=== PATIENT | male | born 1945 | race Caucasian/White ===

== ENCOUNTER 2024-12-26 18:25 | Emergency (ER) | payer MEDICARE, SELFPAY ==
[2024-12-26] VITALS (36 sets, daily range): BP systolic 83–135; BP diastolic 49–106; PULSE 92–109; O2SAT 90–96; BMI 40.6
--- NOTE | 2024-12-26 18:30 | XR_ITS ---
The [address] [address] Patient Name: RENATE GUILLEN MRN: [id number] date: 1945 Sex: M Assigned Patient Location: ED.MAIN Current Patient Location: ED.MAIN Accession/Order Number: [id number] Exam Date: 12/26/2024 19:54 Report Date: 12/26/2024 19:56 At the request of: DAVID GAN MD Procedure: XR chest 1V PA CHEST: CLINICAL HISTORY: unresponsive COMPARISON: None Hypoventilatory changes. Heart is grossly unremarkable size. No effusion or pneumothorax. Bibasilar atelectasis suspected. No definite confluent airspace disease or effusion. XR/XR chest 1V IMPRESSION: Hypoventilatory changes without definite airspace disease. Impression dictated by: Kenyon Rod M.D. 12/26/2024 7:56 PM Dictation Location: [place] [address] Electronically authenticated by: [id number] Y Date: 12/26/2024 19:56
--- NOTE | 2024-12-26 18:30 | ECG_ITS ---
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 Measurements Intervals [place] Rate: 53 P: 212 WV: 274 QRS: 78 QRSD: 78 T: 38 QT: 384 QTc: 368 Interpretive Statements SINUS BRADYCARDIA 1470 with occasional supraventricular premature complexes 1570 with occasional ventricular premature complexes 2231 First degree AV block 3133 Anterior myocardial infarction, probably old 8102 Low QRS voltage in chest leads 9150 abnormal ECG No previous ECG available for comparison Electronically Signed On 12-27-2024 6:55:39 EDT by ROBIN HOLBROOK M.D.
[2024-12-26] MEDS: 0.9 % SODIUM CHLORIDE 1,000 ML 1000 ML IV (18:45)
[2024-12-26] MEDS: PANTOPRAZOLE SODIUM 40 MG VIAL 80 MG IV (18:45)
--- NOTE | 2024-12-26 18:47 | ED_ITS ---
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 and his last INR checked more than a 1 month ago was normal, patient is coming to us also with lower abdominal pain associate mostly with having a bowel movement, the patient mentioned having some vomiting with blood in it before arrival to, by the time the EMS arrived the patient became unresponsive going to the EMS vehicle, it was only for few seconds and they did not do any CPR but he was sinus tachycardia when that happened and he regained consciousness by himself The patient have nausea right now and lower abdominal pain Related Data Allergies Allergy/AdvReac Type Severity Reaction Status Date / Time amoxicillin Allergy Unknown Unknown Verified 12/26/24 18:36 Iodinated Contrast Media Allergy Unknown Unknown Verified 12/26/24 18:36 Review of Systems ROS Status of ROS 10 or more systems reviewed and unremark able except as noted in history and below PFSH PFSH Social History Little interest or pleasure in doing things: not at all Feeling down, depressed, or hopeless: not at all Exam Narrative Exam Narrative: Nurses notes and vital signs reviewed and patient is not hypoxic. General: Pale and appears to be in distress Skin: Warm, dry, pale No rash. Head: Normocephalic, atraumatic. Neck: Supple, non-tender. Eye: Pupils are equal, round and EOMI. No scleral icterus. Ears, Nose, Mouth, and Throat: TM are clear, no nasal mucosal hypertrophy. Oral mucosa is moist, no posterior oropharynx erythema, uvula is mid-line Cardiovascular: Regular Rate and Rhythm without murmur, gallop or rub. Respiratory: No accessory muscle use or respiratory distress. Lungs are clear to auscultation, no wheezing, rales or rhonchi Chest Wall: no tenderness Back: No midline thoracic or lumbar vertebral tenderness. No CVA tenderness Musculoskeletal: normal ROM, no calf or popliteal tenderness, no lower extremity edema/swelling GI: Abdomen is soft, non-distended. Normal bowel sounds. Lower abdominal pain and tenderness Neurological: A&O x4. No cranial nerve dysfunction observed. No truncal ataxia. Moves all extremities. Sensation intact. Psychiatric: Cooperative and interactive. Normal mood and affect. Constitutional Vital Signs, click to edit/add: Last Vital Signs Pulse 109 H 12/26/24 18:32 Resp 26 H 12/26/24 18:32 BP 112/61 12/26/24 18:32 Pulse Ox 96 12/26/24 18:32 O2 Del Method Room Air 12/26/24 18:32 Course Vital Signs Vital signs: Vital Signs Pulse Rate 109 H 12/26/24 18:32 Respiratory Rate 26 H 12/26/24 18:32 Blood Pressure 112/61 12/26/24 18:32 Pulse Oximetry 96 12/26/24 18:32 Oxygen Delivery Method Room Air 12/26/24 18:32 Pulse Rate 109 H 12/26/24 18:32 Respiratory Rate 26 H 12/26/24 18:32 Blood Pressure 112/61 12/26/24 18:32 Pulse Oximetry 96 12/26/24 18:32 Oxygen Delivery Method Room Air 12/26/24 18:32 MDM - Abdominal Pain MDM Narrative Medical decision making narrative: The patient presented to us with a picture of acute black stool that could be secondary to upper GI bleed Right now the workup in progress but the patient was started on tonics 80 mg IV one-time Discharge Plan Discharge Patient Disposition: Still a Patient
[2024-12-26 19:10] LABS: Hematocrit 32.6 % (42.0-54.0); Hemoglobin 11.1 g/dL (14.0-18.0); Mean Corpuscular HGB Conc 34.0 g/dL (29.9-35.2); Mean Corpuscular Hemoglobin 29.8 pg (25.9-34.0); Mean Corpuscular Volume 87.6 fL (80.0-94.0); Platelet Count 211 10^3/uL (150-450); Red Blood Count 3.72 10^6/uL (4.70-6.10); White Blood Count 18.1 10^3/uL (4.0-11.0)
[2024-12-26 19:11] LABS: Immature Granulocytes Abs Auto 0.17 10^3/uL (0.00-0.03); Immature Granulocytes Pct Auto 0.9 % (0.0-0.5); Lymphocytes Absolute Auto 1.1 10^3/uL (1.2-3.8)
[2024-12-26 19:19] LABS: Lipase 65.0 U/L (16.0-77.0)
[2024-12-26 19:21] LABS: INR 3.04; Prothrombin Time 28.9 sec (9.0-11.6)
--- NOTE | 2024-12-26 19:27 | CT_ITS ---
[address] [address] Patient Name: RENATE GUILLEN MRN: [id number] date: 1945 Sex: M Assigned Patient Location: ER Current Patient Location: [facility] Accession/Order Number: [id number] Exam Date: 12/26/2024 20:29 Report Date: 12/26/2024 20:34 At the request of: TERENCE PEARSON MD Procedure: CT abdomen pelvis wo con CT ABDOMEN AND PELVIS WITHOUT INTRAVENOUS CONTRAST: CLINICAL HISTORY: abdominal pain COMPARISON: None TECHNIQUE: Spiral images were obtained through the abdomen and pelvis without intravenous contrast. This CT exam was performed using one or more following dose reduction techniques: Automated exposure control, adjustment of the mA and/or kV according to patient size, or use of iterative reconstruction technique. FINDINGS: Lung Bases: [Coronary artery disease versus stents. Minimal lingular atelectasis or scarring. Lung bases otherwise grossly clear.] Organs:Right hepatic hypodensity likely a cyst. Otherwise liver, gallbladder, spleen, right adrenal gland unremarkable. Left adrenal nodule likely adrenal adenoma. Kidneys are symmetric in size. Perinephric fat stranding noted. There are left-sided renal cysts. No hydronephrosis. No nephrolithiasis.[ GI: Mild retained stool. No bowel obstruction. Nonvisualization appendix. No pericecal inflammatory changes. Colonic diverticulosis greatest involving the sigmoid colon.[ Pelvis:[Multifocal bladder diverticulum. Mild bladder distention. Soft tissue within the base of bladder may represent enlarged prostate.. Peritoneum/Retroperitoneum:Tiny fat-containing umbilical hernia. Moderate plaque involving the nonaneurysmal aorta. Moderate plaque involving the mesenteric vessels.[IVC filter noted Abd wall/Bones:Multilevel degenerative changes throughout the lumbar spine. Degenerative changes of the hips.[ CT/CT abdomen pelvis wo con IMPRESSION: Negative acute inflammatory process or bowel obstruction. Colonic diverticulosis. Presumed prostate indenting the base of bladder. Multifocal bladder diverticulum. Impression dictated by: Kenyon Rod M.D. 12/26/2024 8:34 PM Dictation Location: [place] [address] Electronically authenticated by: [id number] Y Date: 12/26/2024 20:34
[2024-12-26 19:33] LABS: Alanine Aminotransferase 19 U/L (16-63); Albumin Globulin Ratio 0.8; Albumin Level 2.8 g/dL (3.4-5.0); Alkaline Phosphatase 55 U/L (46-116); Anion Gap 16.3; Aspartate Amino Transferase 15 U/L (15-37); Calcium 9.0 mg/dL (8.5-10.1); Carbon Dioxide 22.1 mmol/L (21.0-32.0); Chloride 104 mmol/L (98-107); Estimated GFR (African America 32 (>=60 mL/min/1.73m^2); Estimated GFR (Non-African Ame 27 (>=60 mL/min/1.73m^2); Globulin 3.6 g/dL; Glucose 201 mg/dL (74-106); Potassium 5.4 mmol/L (3.5-5.1); Sodium 137 mmol/L (136-145); Total Protein 6.4 g/dL (6.4-8.2)
[2024-12-26 19:36] LABS: Blood Urea Nitrogen 93.0 mg/dL (7.0-18.0); Lactate/Lactic Acid 3.7 mmol/L (0.4-2.0)
[2024-12-26 19:37] LABS: Ammonia 59 umol/L (11-32)
[2024-12-26] MEDS: 0.9 % SODIUM CHLORIDE 1,000 ML 999 ML IV (21:02)
[2024-12-27] VITALS (32 sets, daily range): BP systolic 82–145; BP diastolic 59–95; PULSE 89–121; TEMP 36.7; O2SAT 88–97
--- NOTE | 2024-12-27 01:21 | PC.NURSE ---
Pt was moved from the ED cot into a regular floor bed. He is unable to urinate, but states he has not drank much, nor does he feel pain and pressure.
[2024-12-27 01:31] LABS: Hematocrit 29.4 % (42.0-54.0); Hemoglobin 10.1 g/dL (14.0-18.0); Immature Granulocytes Abs Auto 0.12 10^3/uL (0.00-0.03); Immature Granulocytes Pct Auto 0.7 % (0.0-0.5); Lymphocytes Absolute Auto 1.2 10^3/uL (1.2-3.8); Mean Corpuscular HGB Conc 34.4 g/dL (29.9-35.2); Mean Corpuscular Hemoglobin 30.2 pg (25.9-34.0); Mean Corpuscular Volume 88.0 fL (80.0-94.0); Platelet Count 176 10^3/uL (150-450); Red Blood Count 3.34 10^6/uL (4.70-6.10); White Blood Count 17.7 10^3/uL (4.0-11.0)
[2024-12-27] MEDS: PHYTONADIONE (VIT K1) 10 MG/ML AMPUL 2.5 MG PO (03:04)
== END 2024-12-27 03:44 | disposition short-term general hospital (02) ==
PROVIDERS: Emergency Medicine; Emergency Provider Internal Medicine; PCP Family Medicine
DX: K92.2 Gastrointestinal hemorrhage, unspecified (principal); Z79.01 Long term (current) use of anticoagulants; Z86.718 Personal history of other venous thrombosis and embolism; R40.4 Transient alteration of awareness; R10.30 Lower abdominal pain, unspecified; R11.0 Nausea; N18.9 Chronic kidney disease, unspecified
CPT/HCPCS: 36415; 71045; 74176; 80053; 80307; 80320; 82140; 83605; 83690; 84484; 85025; 85610; 86850; 86900; 86901; 93005; 96361; 96374; 96375; 99285; J2405; J3430